=== PATIENT | female | born 1960 | race Caucasian/White ===

== ENCOUNTER 2017-11-02 08:18 | Outpatient (CLI) | payer BC, SELFPAY ==
[2017-11-02 09:00] LABS: HCT 39.6 % (36.0-46.0); HGB 13.5 g/dL (12.0-15.5); Mean Corp. HGB Concentration 34.1 g/dL (32.0-36.0); Mean Corpuscular Hemoglobin 32.1 pg (27.0-33.0); Mean Corpuscular Volume 94.3 fL (80-95); Mean Platelet Volume 9.4 fL (8.0-11.0); Platelet Count 275 x1000/uL (130-400); RBC Distribution Width 11.8 % (11.7-14.6); White Blood Cell Count 9.17 k/cumm (4.4-10.8)
[2017-11-02 09:47] LABS: ALT 19 U/L (12-78); AST 11 U/L (15-37); Albumin 3.6 g/dL (3.4-5.0); Alkaline Phosphatase 94 U/L (46-116); Anion Gap 7.2 mmol/L (3-11); BUN 14 mg/dL (7-18); Bilirubin, Total 0.6 mg/dL (0.2-1.0); CO2 25.8 mmol/L (21.0-32.0); CREATININE 0.82 mg/dL (0.55-1.02); Calcium 8.4 mg/dL (8.5-10.1); Chloride 104 mmol/L (98-107); Cholesterol 170 mg/dL (50-200); Glucose 103 mg/dL (70-100); HDL Cholesterol 41 mg/dL (40-60); LDL CHOLESTEROL 117 mg/dL (<100); Potassium 4.4 mmol/L (3.5-5.1); Sodium 137 mmol/L (136-145); Triglyceride 119 mg/dL (30-150)
== END 2017-11-02 08:38 ==
PROVIDERS: PCP Family Medicine; Visit Provider Family Medicine
DX: I10 Essential (primary) hypertension (principal); E78.5 Hyperlipidemia, unspecified
CPT/HCPCS: 36415; 80053; 80061; 83721; 85027

== ENCOUNTER 2017-11-15 01:04 | Outpatient (CLI) | payer BC, SELFPAY ==
--- NOTE | 2017-11-15 08:21 | DI.MAMMO_ITS ---
SYMPTOMS/DIAGNOSIS: SCREENING, Z12.31 MAMMOGRAM: Mammograms were interpreted according to the usual protocol including computer analysis with CAD system, tomosynthesis and C view imaging. The patient has reportedly had n interval reduction mammoplasty since the previous examination of 08/21/15. Breasts are of moderate radiodensity. There is a new area of focal irregular radiodensity, which contains a few punctate microcalcifications, which lies in the medial posterior aspect of the right breast. This was not present on the previous examination, although the prior examination does predate the surgery. Spot compression views of the right breast should be obtained. No other significant change seen. CONCLUSION: Additional mammographic views of the right breast requested as described above. Breast ultrasound should probably be obtained as well. Category 0, breast density category B. MQSA ASSESSMENT OF FINDINGS: Incomplete: Needs additional imaging evaluation. Category 0. Patient will receive a letter notifying them of these results. BI-RADS category B. There are scattered areas of fibroglandular density.
== END 2017-11-15 01:24 ==
PROVIDERS: PCP Family Medicine; Visit Provider Family Medicine
DX: Z12.31 Encounter for screening mammogram for malignant neoplasm of breast (principal); R92.8 Other abnormal and inconclusive findings on diagnostic imaging of breast
CPT/HCPCS: 77063; 77067

== ENCOUNTER 2017-11-22 00:45 | Outpatient (CLI) | payer BC, SELFPAY ==
--- NOTE | 2017-11-22 10:24 | DI.MAMMO_ITS ---
SYMPTOM/DIAGNOSIS: RT, NEW AREA OF FOCAL IRREG. RADIODENSITY MAMMOGRAM: Additional images are interpreted according to the usual protocol including tomosynthesis and 2D imaging. Follow up magnification, craniocaudad and medial lateral compression spot films of the right breast. Again demonstrated is a faint irregular radiodensity in the medial portion of the breast. There are numerous punctate calcifications which as previously noted were not present on the previous examination of 2016. The compression spot films confirm this finding. At ultrasound, no cyst or mass was demonstrated. SUMMARY: A faint isometric density contains numerous small calcifications. The possibility of a malignancy could not be entirely excluded and further assessment with a biopsy is recommended. Category 4, Breast density category B. MQSA ASSESSMENT OF FINDINGS: Suspicious. Biopsy should be considered. Category 4. Patient will receive a letter notifying them of these results. BI-RADS category B. There are scattered areas of fibroglandular density.
== END 2017-11-22 01:05 ==
PROVIDERS: PCP Family Medicine; Visit Provider Family Medicine
DX: Z12.31 Encounter for screening mammogram for malignant neoplasm of breast (principal); R92.8 Other abnormal and inconclusive findings on diagnostic imaging of breast; N63.10 Unspecified lump in the right breast, unspecified quadrant; R92.1 Mammographic calcification found on diagnostic imaging of breast
CPT/HCPCS: 76642; 77063; 77067

== ENCOUNTER 2020-06-04 10:23 | Outpatient (REF) | payer OTHER, SELFPAY ==
--- NOTE | 2020-06-04 09:15 | PAPFT_PTH ---
PATIENT: Yanni Dupree [facility] U[facility][id number] AGE/SX: 59/F ROOM: RE06/04/[address]: Mary Ford : 1960 BED: DIS: 06/04/2020 SPEC #: [id number] RECD: 06/04/20 12:46 STATUS: BARRY REFarhan #: [id number] CHRISTOPHE: 06/04/20 09:[address]: Mary Ford DEPT: [facility] Cytology RECD BY: Jessica Angulo Tissues: 1 - CX/ENDOCX FOR PAP SMEARS Procedures: PAP THIN PREP/UVM Screening HPV DNA PROBE Comments: [id number]
== END 2020-06-04 10:24 | disposition home or self-care (01) ==
LOC: NCHCN 10:23
PROVIDERS: PCP Family Medicine; Visit Provider Family Medicine
DX: Z00.00 Encounter for general adult medical examination without abnormal findings (principal); Z12.4 Encounter for screening for malignant neoplasm of cervix; Z01.419 Encounter for gynecological examination (general) (routine) without abnormal findings; Z11.51 Encounter for screening for human papillomavirus (HPV)
CPT/HCPCS: 88142; 87624

== ENCOUNTER 2024-04-01 09:09 | Day surgery (SDC) | payer BC, SELFPAY ==
--- NOTE | 2024-03-31 05:17 | W.PM.DSUDISC ---
Date of service: 04/01/24 Discharge Plan Disposition Patient Disposition: Home Condition: Good Discharge Details Reason For Visit: screening colonoscopy Attending Provider: Phil Borrero Primary Care Provider: Mary Ford Home Meds and New Rx's Prescriptions: Continued atorvastatin 20 mg tablet 20 mg PO QHS hydrochlorothiazide 25 mg tablet 25 mg PO DAILY hydrocortisone 2.5 % cream 1 applic topical BID PRN lisinopril 40 mg tablet 40 mg PO DAILY omeprazole 20 mg capsule,delayed release(DR/EC) 20 mg PO DAILY magnesium 250 mg tablet 250 mg PO QHS Discontinued bisacodyl [Dulcolax (bisacodyl)] 5 mg tablet,delayed release (DR/EC) 5 mg PO ONCE Qty: 4 0RF Rx Instructions: Take per colonoscopy instructions provided by ordering providers office polyethylene glycol 3350 17 gram/dose powder 17 g PO ONCE Qty: 238 0RF Rx Instructions: Take per colonoscopy instructions provided by ordering providers office Discharge Instructions Instructions: Colon polyps, Diverticulosis Additional Instructions: Heather, it was very nice meeting you today, and I hope you feel great after the colonoscopy. Everything went very smoothly. I did find and removed 2 polyps today. These are extremely small, and might not even be real polyps. Regardless, I will send them off to the pathologist for their review. If they are polyps, that will inform us regarding the timing of your next colonoscopy. Incidentally, he also have a little bit of diverticulosis. These are weak spots in the muscular part of the colon wall that typically accumulate as we age. This causes little pockets or pouches to form. These can get impacted with stool and become infected during flareups that we refer to as diverticulitis. Hopefully, years never bother you. Generally, I recommend the patients increase her dietary fiber, drink plenty of free water (this is probably something you could improve) and avoid symptoms of constipation. If you do feel constipated, something like prune juice, or a laxative can be helpful to restore normal bowel function. If you need anything or have any questions, please do not hesitate to call, otherwise we will be in touch once the polyp report is available. 1. If tolerated, consume a soft, low fiber diet for 1-2 days. 2[address] Do not drive, drink alcohol, operate machinery, make critical decisions, or do activities that require coordination or balance for 24 hours. 3. Because air was put into your colon during the procedure, expelling air from your rectum (passing gas or farting) is normal. 4. You may not have a bowel movement for 1-3 days because of the colonoscopy prep. This is normal. 5. Go directly to the emergency room if you notice any of the following: Develop chills (warm to touch), or if you have a thermometer and your temperature is above 101 Difficulty breathing or difficultly swallowing Persistent vomiting Severe abdominal pain, other than gas cramps Severe chest pain Black, tarry stools Any bleeding ? exceeding one tablespoon 6. Call your physician if the site where your intravenous was started becomes red, swollen, painful, and warm to touch. 7. Your physician has reviewed your pre-procedure medications. Please continue to take those medications as previously ordered. You will be given specific information/education regarding any changes to your medications before leaving. Stand Alone Forms: Anesthesia Discharge InstPatsy Araujo (DSU) Activity:: Activity as Tolerated Diet:: As Tolerated Discharge Orders Discharge Orders: Discharge Order (Routine); Ordered 03/31/24 Ordered By: Phil Borrero DS: Diagnosis Discharge Diagnosis (1) Encounter for screening colonoscopy: Status: Acute Asessment and Plan: Follow-up on polypectomy results
--- NOTE | 2024-03-31 05:18 | COLE_ITS ---
Date of service: 04/01/24 Time of Service: 12:01 Colonoscopy Report Date of procedure: 04/01/24 Pre-op diagnosis general: screening colonoscopy Post-op diagnosis procedure note: other (Colon polyps, diverticulosis) Procedure: colonoscopy with polypectomy Surgeon: Phil Borrero Anesthesia Type: General:No Airway Estimated blood loss (mL): 5 Pathology: other (0.25 cm flat polyp at 80 cm, 0.25 cm flat polyp at 70 cm) Complications: None Disposition: same day Indications: Yanni is a 63 year old woman who needs her next screening colonoscopy Prep: Miralax/Dulcolax Procedure Start Time: 11:36 Procedure End Time: 11:51 Retraction Time: 8 Findings: Sigmoid diverticulosis; 0.25 cm flat polyp at 80 cm, 0.25 cm flat polyp at 70 cm Procedure Description: After the induction of anesthesia, and with the patient in left lateral decu bitus position, I began by performing an external anorectal exam.? Perineum and skin were normal, as was the anal verge.? There was no evidence of external hemorrhoids.? Next, I performed a digital rectal exam.? I did not appreciate any abnormal findings.? Next, I advanced a colonoscope into the rectal vault.? I performed retroflexion.? This appeared normal.? Using insufflation, I then advanced the colonoscope beyond the rectal folds and into the sigmoid colon before advancing towards the cecum.? There is some sigmoid diverticulosis.? The scope was noted to be in the cecum by identification of the ileocecal valve and appendiceal orifice.? I then began withdrawing the colonoscope using repeated irrigation as necessary for full evaluation of the colonic mucosa. Around 80 cm from the anal verge I identified a 0.25 cm polyp. ?It appeared flat in character. ?I was able to remove this with a cold forcep polypectomy. ?I examined the site, and there was minimal bleeding. ?Once this was completed, I continued to withdraw the scope and examine the remainder of the colonic mucosa. I found another 0.25 cm flat polyp around 70 cm from the anal verge. This was also removed with cold forceps without any issues. ?Once the scope was withdrawn to the level of the rectum, great care was taken to examine portions of the rectal folds.? Finally, the scope was withdrawn and the patient was brought to the same-day surgery recovery unit as the anesthetic wore off. ?The findings and instructions were shared with the patient prior to discharge. Roebling Bowel Prep Roebling Bowel Prep Right Colon: 3 Left Colon: 3 Transverse Colon: 3 Total Score: 9
[2024-04-01 09:26] VITALS: BP 126/78; PULSE 93; RESP 20; TEMP 36.2; O2SAT 97
[2024-04-01] MEDS: Lactated Ringers 1,000 ML 80 ML IV (09:48)
[2024-04-01 11:25] VITALS: BMI 43.5
--- NOTE | 2024-04-01 11:25 | W.ANESPRE ---
General Info Date of Service Date Performed: 04/01/24 Height: 5 ft 1 in Weight: 104.6 kg Body Mass Index (BMI): 43.5 Surgical Procedure: Operation Date: 04/01/24 12:05 Proposed Procedure Side Surgeon p Colonoscopy Phil Borrero MD Actual Procedure Side Surgeon p Colonoscopy Not Applicable Phil Borrero MD Pre-Op Diagnosis Post-Op Diagnosis screening colonoscopy Meds Allergies and Home Medications Allergies Allergy/AdvReac Type Severity Reaction Status Date / Time No Known Allergies Allergy Verified 04/01/24 09:33 Home Medication ?Medication ?Instructions ?Recorded atorvastatin 20 mg tablet 20 mg PO QHS 03/18/24 hydrochlorothiazide 25 mg tablet 25 mg PO DAILY 03/18/24 hydrocortisone 2.5 % topical cream 1 applic topical BID PRN 03/18/24 lisinopril 40 mg tablet 40 mg PO DAILY 03/18/24 omeprazole 20 mg capsule,delayed 20 mg PO DAILY 03/18/24 release magnesium 250 mg tablet 250 mg PO QHS 03/22/24 Current Visit Medications: Current Medications Generic Name Dose Route Start Last Admin Trade Name Freq PRN Reason Stop Dose Admin Ringer's Solution 1,000 mls @ 80 mls/hr 04/01/24 06:00 04/01/24 09:48 IV 04/01/24 23:59 80 mls/hr INFUSION ELAINA Administration IV Miscellaneous Supplies 1 each 04/01/24 06:00 Iv Access IV 04/01/24 23:59 DIRECTED ELAINA Ondansetron HCl 4 mg 03/31/24 05:20 Ondansetron 4 Mg/2 Ml Vial IVP 04/30/24 05:19 Q4H PRN PRN Nausea / Vomiting Sodium Chloride 0 ml 04/01/24 06:00 Normal Saline Flush 10 Ml Syr IV 04/01/24 23:59 PRN PRN Sodium Chloride 0 ml 04/01/24 06:00 Normal Saline 10 Ml Vial IJ 04/01/24 23:59 DIRECTED PRN Sterile Water 0 ml 04/01/24 06:00 Water,Injection,Sterile 10 Ml Vial IJ 04/01/24 23:59 DIRECTED PRN PFSH Active Problems Active Problems: Problem Status Onset Code Encounter for screening colonoscopy Acute Z12.11 Medical History Medical History Menopause present Abnormal mammography Dysphagia Eczema Vaginal bleeding Endometrial hyperplasia Gastroesophageal reflux disease without esophagitis Essential hypertension Obesity Hyperlipidemia Vitamin D deficiency Surgical History Surgical History Hx of dilation and curettage Tobacco Smoking/Tobacco Use Status: Former Tobacco Use Alcohol Alcohol Intake: current Alcohol intake frequency: holidays/special occasions only Substance Use Substance use: Never Substance use type: does not use Vital Signs and Lab Results Vital Signs Most Recent Vital Signs in EMR: Most Recent Vital Signs Temp Pulse Resp BP Pulse Ox 36.2 C L 93 H 20 126/78 97 04/01/24 09:26 04/01/24 09:26 04/01/24 09:26 04/01/24 09:26 04/01/24 09:26 Lab Results Blood Type / Crossmatch: No Data to Display Complete Blood Count: No Data to Display Complete Metabolic Panel: No Data to Display Liver Function Panel: No Data to Display Coagulation Panel: No Data to Display Cardiac Panel: No Data to Display Arterial Blood Gas: No Data to Display Venous Blood Gas: No Data to Display Pancreas Panel: No Data to Display Thyroid Panel: No Data to Display Infectious Disease: No Data to Display Blood Cultures: No Data to Display Toxicology Panel: No Data to Display Anesthesia Assessment and Plan Anesthesia History Personal History: No History of Anesthesia Complications Family History: No Family History of Anesthesia Complications Exercise Tolerance Exercise Tolerance: Metabolic Equivalents>4 Pertinent Negatives Pertinent Negatives: No Symptoms of GERD Cardiac & Pulmonary Exam Cardiac Exam: Normal S1/S2 Heart Sounds Pulmonary Exam: Clear Bilateral Breath Sounds Implantable Cardiac Device Does patient have a Pacemaker or an ICD?: No Airway Exam Known Difficult Airway: No Mallampati Class: 2 Mouth Opening: Normal (> 3cm) Thyromental Distance: Greater than 3 cm Neck Range of Motion: Full ROM Neck Circumference: Thick Teeth Condition: Normal Dentition ASA Classification ASA Score: ASA 2 Emergency Case?: No NPO Status NPO Status: NPO Clears >2 hours, Solids >8 hours Anesthesia Plan Resuscitation Status: Full Code Anesthesia Technique: General Anesthesia Airway Planned: Natural Airway Monitors Used: Standard Monitors
--- NOTE | 2024-04-01 11:44 | BOWEL_PTH ---
PATIENT: Yanni Dupree LOC: [facility] U#:[id number] AGE/SX: 63/F ROOM: RE04/01/[address]: Phil Borrero MD : 1960 BED: DIS: 04/01/2024 SPEC #: [id number] RECD: 04/01/24 13:05 STATUS: BARRY RE #: [id number] CHRISTOPHE: 04/01/24 11:[address]: Phil Borrero DEPT: Surgical Specimen RECD BY: Jessica Angulo ENTERED: 04/01/24 13:06 SP TYPE: Bowel OTHR DR: Mary Ford Tissues: 1 - BIOPSY BOWEL 2 - BIOPSY BOWEL Procedures: GROSS AND MICRO LEVEL 4 Comments: [id number]
[2024-04-01 11:57] VITALS: BP 107/63; PULSE 84; RESP 16; TEMP 36.5; O2SAT 96
[2024-04-01 12:35] VITALS: BP 120/65; PULSE 76; RESP 16; TEMP 36.6; O2SAT 98
--- NOTE | 2024-04-01 13:10 | W.ANESPOSTOP ---
Postoperative Evaluation Date, Time and Location Date Performed: 04/01/24 Time Performed: 12:00 Patient Location: Day Surgery Unit Vital Signs Most Recent Imported Vital Signs: Most Recent Vital Signs Temp Pulse Resp BP Pulse Ox 36.6 C 76 16 120/65 98 04/01/24 12:35 04/01/24 12:35 04/01/24 12:35 04/01/24 12:35 04/01/24 12:35 Pain Score Most Recent Pain Score: Most Recent Pain Score Pain Level 0 04/01/24 12:35 Assessment Mental Status: Arousable with meaningful communication Airway and Respiratory Function: Patent airway with normal (patient baseline) respiratory exam Cardiovascular Function: Hemodynamically Stable Hydration Status: Adequately Hydrated Nausea & Vomiting: No Nausea or Vomiting Pain: Pt. Denies Any Pain Peripheral Nerve Block: Patient did not receive a nerve block
== END 2024-04-01 12:48 | disposition home or self-care (01) ==
LOC: SUR 09:11
PROVIDERS: PCP Family Medicine; Visit Provider Surgery
PROC: 0DJD8ZZ Inspection of Lower Intestinal Tract, Via Natural or Artificial Opening Endoscopic (ICD-10-PCS; CPT 45378; principal; 2024-04-01 12:00)
DX: Z12.11 Encounter for screening for malignant neoplasm of colon (principal); D12.4 Benign neoplasm of descending colon; K57.30 Diverticulosis of large intestine without perforation or abscess without bleeding
CPT/HCPCS: 45380; 88305; J2704